=== PATIENT | female | born 1950 | race Caucasian/White ===

== ENCOUNTER 2017-06-02 05:13 | Emergency (ER) | payer OTHER, BC ==
[~2017-06-02] VITALS: Ht 152.4 cm; Wt 60.0 kg
[~2017-06-02 05:13] MED LIST: AMOXICILLIN500 MG PO; ASPIRIN81 M1 PO; CARTIA XT120 MG PO; CHILD ASPIRIN81 M1 PO; MOTRIN800 MG PO; PROMETHAZINE HC25 M1 PO; TOPROL XL6.25 MG PO; [UNRECOGNIZED DRUG - OTHER]
[2017-06-02 06:23] LABS: HEMATOCRIT 41.1 % (36.0-46.0); MCH 28.2 PG (29.0-34.0); MCHC 33.3 G/DL (30.0-36.0); MCV 84.7 FL (83-99); MEAN PLAT.VOLUME 11.5 uM^3 (9.5-12.4); PLATELET COUNT 188 K/uL (156-360); RBC DIS.WIDTH-CV 11.9 % (11.8-14.6); RBC DIS.WIDTH-SD 36.3 % (39-53); RED BLOOD COUNT 4.85 M/uL (3.80-5.20)
[2017-06-02 06:34] LABS: CHLORIDE 110 mEq/L (99-109); POTASSIUM 4.8 mEq/L (3.7-5.4); SODIUM 143 mEq/L (136-147)
[2017-06-02 06:35] LABS: MAGNESIUM 2.2 mg/dL (1.3-2.7)
[2017-06-02 06:37] LABS: GLUCOSE 103 mg/dL (70-99)
[2017-06-02 06:38] LABS: ANION GAP 7 MEQ/L (2-14)
[2017-06-02 06:39] LABS: TOTAL BILIRUBIN 0.5 mg/dL (0.0-1.0)
[2017-06-02 06:40] LABS: ALKALINE PHOSPHATASE 72 IU/L (3-129)
[2017-06-02 06:41] LABS: GFR ESTIMATE (CALCULATED) 59 mL/min/
[2017-06-02 06:42] LABS: UREA NITROGEN (BUN) 13 mg/dL (9-23)
[2017-06-02 06:44] LABS: LIPASE 39 U/L (1.0-51.0); TROP-I INTERPRETATION NEGATIVE; TROPONIN-I 0.02 ng/mL (0.0-0.30)
[2017-06-02] MEDS ORDERED: NASONEX17 GM BOTH NARES (07:29)
[2017-06-02 09:42] LABS: TROP-I INTERPRETATION NEGATIVE; TROPONIN-I 0.03 ng/mL (0.0-0.30)
[2017-06-02 11:15] VITALS: BP 120/60
== END 2017-06-02 11:18 | disposition home or self-care (01) ==
LOC: EME 05:13
PROVIDERS: Emergency Medicine
DX: R00.2 Palpitations (principal); R00.0 Tachycardia, unspecified; I10 Essential (primary) hypertension; Z79.82 Long term (current) use of aspirin
CPT/HCPCS: 71020; 80053; 83690; 83735; 84100; 84484; 85027; 93005; 99281; 99285

== ENCOUNTER → 2018-05-18 | Outpatient (CLI) | payer OTHER, BC ==
[~2018-05-18] VITALS: Ht 156.2 cm; Wt 56.2 kg
[~2018-05-18] MED LIST changes: +ALIVE WOMEN'S1 EAC1 PO; +MAG-TAB SR84 MG PO; +NASONEX17 GM BOTH NARES; +PROBIOTIC1 EAC1 PO
== END | disposition home or self-care (01) ==
LOC: SDC → AMB 07:11
PROC: 0DBK8ZX Excision of Ascending Colon, Via Natural or Artificial Opening Endoscopic, Diagnostic (ICD-10-PCS; principal; 2018-05-18)
PROC: 0DBL8ZX Excision of Transverse Colon, Via Natural or Artificial Opening Endoscopic, Diagnostic (ICD-10-PCS; principal; 2018-05-18)
DX: Z12.11 Encounter for screening for malignant neoplasm of colon (principal); D12.2 Benign neoplasm of ascending colon; D12.3 Benign neoplasm of transverse colon; K64.8 Other hemorrhoids; Z86.010 Personal history of colon polyps; Z80.0 Family history of malignant neoplasm of digestive organs; K58.1 Irritable bowel syndrome with constipation; E78.5 Hyperlipidemia, unspecified; M85.80 Other specified disorders of bone density and structure, unspecified site; E03.9 Hypothyroidism, unspecified; Z83.3 Family history of diabetes mellitus; Z82.49 Family history of ischemic heart disease and other diseases of the circulatory system; Z80.3 Family history of malignant neoplasm of breast; Z80.42 Family history of malignant neoplasm of prostate; Z79.82 Long term (current) use of aspirin; Z88.1 Allergy status to other antibiotic agents; Z88.2 Allergy status to sulfonamides; Z88.8 Allergy status to other drugs, medicaments and biological substances; Z91.048 Other nonmedicinal substance allergy status; Z91.041 Radiographic dye allergy status
CPT/HCPCS: 88305